=== PATIENT | male | born 1975 | race Native Hawaiian/Other Pacific Islander ===

== ENCOUNTER 2021-06-13 09:36 | Outpatient (CLI) | payer BC | END 2021-06-13 21:20 | disposition home or self-care (01) | LOC: US 09:36 | PROVIDERS: ATTEND Internal Medicine | DX: R22.1 Localized swelling, mass and lump, neck (principal) ==

== ENCOUNTER 2021-07-06 08:10 | Outpatient (CLI) | payer BC | END 2021-07-06 20:24 | disposition home or self-care (01) | LOC: CT 08:10 | PROVIDERS: ATTEND Nurse Practitioner Family | DX: R22.1 Localized swelling, mass and lump, neck (principal) | CPT/HCPCS: 36415; 82565; 84520; Q9963 ==

== ENCOUNTER 2022-09-10 10:45 | Outpatient (CLI) | payer BC | END 2022-09-10 19:20 | disposition home or self-care (01) | LOC: RAD 10:45 | PROVIDERS: ATTEND Internal Medicine | DX: M54.17 Radiculopathy, lumbosacral region (principal) ==

== ENCOUNTER 2022-10-11 12:50 | Outpatient (CLI) | payer BC | END 2022-10-11 19:41 | disposition home or self-care (01) | LOC: RAD 12:50 | PROVIDERS: ATTEND Internal Medicine | DX: S22.000A Wedge compression fracture of unspecified thoracic vertebra, initial encounter for closed fracture (principal); M54.17 Radiculopathy, lumbosacral region; Y92.89 Other specified places as the place of occurrence of the external cause ==